=== PATIENT | male | born 1975 | race Caucasian/White ===

== ENCOUNTER 2019-12-18 19:53 | Emergency (ER) | payer OTHER, SELFPAY ==
[~2019-12-18] VITALS: Ht 177.8 cm; Wt 107.8 kg
--- NOTE | 2019-12-18 21:19 | NUR ---
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
[2019-12-18 21:30] VITALS: BP 111/66
--- NOTE | 2019-12-18 21:32 | NUR ---
THIS IS A 44 YO MALE COMING IN FOR INCREASED REDNESS AND SWELLING TO LOWER RIGHT EXTREMITY FOR THE PAST 2 DAYS, PATIENT STATES "THIS HAPPENED A COUPLE WEEKS AGO BUT IT WENT AWAY ON IT'S OWN". ERYTHEMA/SWELLING NOTED TO RLE, WARM TO TOUCH, [facility]SM INTACT. DENIES ANY MEDICAL HX. MONITORING IN PLACE, VSS, NADN. CALL LIGHT IN REACH.
--- NOTE | 2019-12-18 22:14 | NUR ---
CALL PLACED TO ULTRASOUND, PATIENT HAS TWO PATIENTS AHEAD OF HIM, THEN HE WILL GO TO US
--- NOTE | 2019-12-18 22:17 | NUR ---
US TECH IN ROOM
--- NOTE | 2019-12-18 23:09 | NUR ---
Patient given discharge instructions and they have confirmed that they understand the instructions. Patient ambulatory with steady gait.
== END 2019-12-18 23:10 | disposition home or self-care (01) ==
LOC: ED 22:13
DX: L03.115 Cellulitis of right lower limb (principal); R60.0 Localized edema
CPT/HCPCS: 99284